=== PATIENT | male | born 1965 | race African-American/Black ===

== ENCOUNTER 2017-07-17 15:34 | Emergency (ER) | payer BC ==
[2017-07-17] MEDS ORDERED: Amlodipine 5 MG TAB ONE (16:16)
--- NOTE | 2017-07-17 17:03 | RAD ---
CHEST TWO VIEWS 07/17/17 HISTORY: Cough. Chest pain. COMPARISON: 12/26/16. FINDINGS: The cardiac silhouette is and pulmonary vasculature are unremarkable. Mediastinum is midline. There i s no confluent air space consolidation, pneumothorax or pleural fluid evident. Degenerative changes i nvolve the thoracic spine on the lateral view. IMPRESSION: No active cardiopulmonary abnormalities are demonstrated. POS: [facility]
--- NOTE | 2017-08-18 15:29 | EKG ---
Test Reason : Blood Pressure : / mmHG Vent. Rate : 091 BPM Atrial Rate : 091 BPM P-R Int : 158 ms QRS Dur : 090 ms QT Int : 372 ms P-R-T Axes : 068 006 160 degrees QTc Int : 457 ms Normal sinus rhythm Possible Inferior infarct , age undetermined T wave abnormality, consider lateral ischemia Nonspecific ST abnormality Abnormal ECG Similar to 26-DEC-2016 Confirmed by YOAV BAUER, SAGAR ([id number]), dictionary editor VIVIAN VAZQUEZ ([id number]) on 08/18/2017 3:28:52 PM Referred By: Confirmed By:SAGAR CASON MD
== END 2017-07-17 17:32 | disposition home or self-care (01) ==
LOC: SCSER 15:34
DX: R07.2 Precordial pain (principal); R05 Cough; I10 Essential (primary) hypertension; F17.210 Nicotine dependence, cigarettes, uncomplicated; Z79.899 Other long term (current) drug therapy
CPT/HCPCS: 71046; 93005; 99406